=== PATIENT | female | born 1950 | race Asian ===

== ENCOUNTER → 2021-08-23 | Outpatient (CLI) | payer BC ==
[~2021-08-23] MED LIST: ASPI-1497 PO; ENAL5TAB21 PO; INSU100I28 SQ; SIMV-43 PO
== END | disposition home or self-care (01) ==
LOC: LAB 11:26
PROVIDERS: ATTEND Surgery
DX: Z01.812 Encounter for preprocedural laboratory examination (principal); Z20.822 Contact with and (suspected) exposure to COVID-19
CPT/HCPCS: 87426

== ENCOUNTER → 2021-08-26 | Day surgery (SDC) | payer BC ==
[~2021-08-26] VITALS: Ht 157.5 cm; Wt 51.7 kg
[~2021-08-26] MED LIST changes: +BUPIVACAINE HCL/PF 0.5% (5MG/ML) 10ML ONE; +MEPERIDINE HCL/PF 25MG/ML CPJ IV PRN; +METHYLENE BLUE 50 MG/10 ML AMP IV ONE; +MORPHINE SULFATE 2 MG/ML CPJ (NOT FOR IM USE) IV PRN; +ONDANSETRON HCL 4MG/2ML INJ IV PRN; +SKIN ADHESIVE 0.7 GM EA TOP ONE; +SODIUM CHLORIDE 0.9% 1,000 ML IV ONE; +SODIUM CHLORIDE 0.9% 1,000 ML IV SCH; +SODIUM CHLORIDE 0.9% 10ML VIAL ONE
[2021-08-26] MEDS: HYDROMORPHONE HCL/PF 2MG/ML CPJ IV PRN ×4 (11:42→12:21)
[2021-08-26 12:21] VITALS: BP 116/62
== END | disposition home or self-care (01) ==
LOC: EDUNIT# 08-24 07:30 → OR 05:44
PROVIDERS: ATTEND Surgery
DX: C50.911 Malignant neoplasm of unspecified site of right female breast (principal); E11.9 Type 2 diabetes mellitus without complications; E78.00 Pure hypercholesterolemia, unspecified; Z90.710 Acquired absence of both cervix and uterus; Z98.890 Other specified postprocedural states; Z79.899 Other long term (current) drug therapy
CPT/HCPCS: 19281; 19301; 38500; 76098; 78195; 82962; 88305; 88307; 88331; J0330; J0690; J1170; J2250; J2405; J2704; J2765; J3490; Q9968; J2370; J2710